=== PATIENT | male | born 2000 | race Caucasian/White ===

== ENCOUNTER 2020-04-10 18:26 | Emergency (ER) | payer MEDICAID, SELFPAY ==
[2020-04-10 18:40] VITALS: BP 158/105; PULSE 96; RESP 16; TEMP 36.9; O2SAT 98; BMI 32.9
== END 2020-04-10 19:30 | disposition left against medical advice (07) ==
LOC: ER 18:46
PROVIDERS: Emergency Provider Emergency Medicine
DX: Z53.21 Procedure and treatment not carried out due to patient leaving prior to being seen by health care provider (principal)
CPT/HCPCS: 99281

== ENCOUNTER 2021-03-13 13:07 | Outpatient (CLI) | payer MEDICAID, SELFPAY | END 2021-03-13 13:08 | disposition home or self-care (01) | LOC: WOUND 13:09 | PROVIDERS: Visit Provider Thoracic Surgery (Cardiothoracic Vascular Surgery) | DX: T81.89XA Other complications of procedures, not elsewhere classified, initial encounter (principal); Y83.8 Other surgical procedures as the cause of abnormal reaction of the patient, or of later complication, without mention of misadventure at the time of the procedure | CPT/HCPCS: 11042; 11045; G0463 ==

== ENCOUNTER 2021-03-16 15:02 | Outpatient (CLI) | payer MEDICAID, SELFPAY | END 2021-03-16 15:03 | disposition home or self-care (01) | LOC: WOUND 15:03 | PROVIDERS: Visit Provider Thoracic Surgery (Cardiothoracic Vascular Surgery) | DX: T81.31XA Disruption of external operation (surgical) wound, not elsewhere classified, initial encounter (principal); Y83.8 Other surgical procedures as the cause of abnormal reaction of the patient, or of later complication, without mention of misadventure at the time of the procedure | CPT/HCPCS: 97605 ==

== ENCOUNTER 2021-03-19 10:57 | Outpatient (CLI) | payer MEDICAID, SELFPAY | END 2021-03-19 10:58 | disposition home or self-care (01) | LOC: WOUND 10:58 | PROVIDERS: Visit Provider Thoracic Surgery (Cardiothoracic Vascular Surgery) | DX: T81.31XA Disruption of external operation (surgical) wound, not elsewhere classified, initial encounter (principal); Y83.8 Other surgical procedures as the cause of abnormal reaction of the patient, or of later complication, without mention of misadventure at the time of the procedure | CPT/HCPCS: 97605 ==

== ENCOUNTER 2021-03-23 14:34 | Outpatient (CLI) | payer MEDICAID, SELFPAY | END 2021-03-23 14:35 | disposition home or self-care (01) | LOC: WOUND 14:34 | PROVIDERS: Visit Provider Surgery | DX: T81.31XA Disruption of external operation (surgical) wound, not elsewhere classified, initial encounter (principal); Y83.8 Other surgical procedures as the cause of abnormal reaction of the patient, or of later complication, without mention of misadventure at the time of the procedure | CPT/HCPCS: 97605 ==

== ENCOUNTER 2021-03-27 14:51 | Outpatient (CLI) | payer MEDICAID, SELFPAY | END 2021-03-27 14:52 | disposition home or self-care (01) | LOC: WOUND 14:51 | PROVIDERS: Visit Provider Thoracic Surgery (Cardiothoracic Vascular Surgery) | DX: T81.89XA Other complications of procedures, not elsewhere classified, initial encounter (principal); Y83.8 Other surgical procedures as the cause of abnormal reaction of the patient, or of later complication, without mention of misadventure at the time of the procedure | CPT/HCPCS: 11042; 11045 ==

== ENCOUNTER 2021-03-30 14:33 | Outpatient (CLI) | payer MEDICAID, SELFPAY | END 2021-03-30 14:34 | disposition home or self-care (01) | LOC: WOUND 14:34 | PROVIDERS: Visit Provider Surgery | DX: T81.31XA Disruption of external operation (surgical) wound, not elsewhere classified, initial encounter (principal); Y83.8 Other surgical procedures as the cause of abnormal reaction of the patient, or of later complication, without mention of misadventure at the time of the procedure | CPT/HCPCS: 97605 ==

== ENCOUNTER 2021-04-03 14:29 | Outpatient (CLI) | payer MEDICAID, SELFPAY | END 2021-04-03 14:30 | disposition home or self-care (01) | LOC: WOUND 14:30 | PROVIDERS: Visit Provider Nurse Practitioner Family | DX: T81.89XA Other complications of procedures, not elsewhere classified, initial encounter (principal); Y83.8 Other surgical procedures as the cause of abnormal reaction of the patient, or of later complication, without mention of misadventure at the time of the procedure | CPT/HCPCS: 11042 ==

== ENCOUNTER 2021-04-16 15:01 | Outpatient (CLI) | payer MEDICAID, SELFPAY | END 2021-04-16 15:02 | disposition home or self-care (01) | LOC: WOUND 15:01 | PROVIDERS: Visit Provider Nurse Practitioner Family | DX: T81.89XA Other complications of procedures, not elsewhere classified, initial encounter (principal); Y83.8 Other surgical procedures as the cause of abnormal reaction of the patient, or of later complication, without mention of misadventure at the time of the procedure; F17.210 Nicotine dependence, cigarettes, uncomplicated | CPT/HCPCS: 11042 ==

== ENCOUNTER → 2023-12-19 11:44 | Outpatient (BNVA) | payer MEDICAID, SELFPAY | PROVIDERS: Visit Provider Emergency Medicine | DX: B34.9 Viral infection, unspecified (principal) | CPT/HCPCS: 87400; 87420; 87426 ==

== ENCOUNTER 2025-01-06 14:07 | Emergency (ER) | payer MEDICAID, SELFPAY ==
[2025-01-06 14:14] VITALS: BP 144/98; PULSE 83; RESP 16; TEMP 36.6; O2SAT 100
[2025-01-06 14:41] LABS: Basophils % 0.3 %; Eosinophils # 0.2 10^3/uL (0.0-0.8); Eosinophils % 1.7 %; Lymphocytes # 2.8 10^3/uL (0.8-4.8); Lymphocytes % 31.7 %; Mean Corpuscular HGB Conc 34.1 g/dL (30-55); Mean Corpuscular Hemoglobin 29.7 pg (27-33); Mean Corpuscular Volume 87.1 fl (82-101); Monocytes # 0.4 10^3/uL (0.2-0.9); Monocytes % 4.6 %; Neutrophils # 5.39 10^3/uL (1.8-7.7); Neutrophils % 61.6 %; Nucleated Red Blood Cells % 0 %; Platelet Count 326 10^3/cmm (157-399); Red Blood Count 5.28 10^6/uL (3.85-5.65); Red Cell Distribution Width 12.2 % (12.1-15.1); White Blood Count 8.75 10^3/uL (3.29-11.43)
[2025-01-06 14:52] LABS: Alanine Aminotransferase 15 U/L (0-41); Albumin Level 3.7 g/dL (3.5-5.2); Alkaline Phosphatase 65 U/L (40-130); Anion Gap 13.8 (5-19); Aspartate Amino Transferase 12 U/L (0-40); Blood Urea Nitrogen 7 mg/dL (6-20); Calcium 9.3 mg/dL (8.5-10.5); Carbon Dioxide 26 mmol/L (22-29); Chloride 104 mmol/L (98-107); Creatinine Clr Calc Pharmacy 175.2425; Globulin 3.2 g/dL (1.3-4.6); Glomerular Filtration Rate 116.9 mL/min (90-130); Glucose 136 mg/dL (65-115); Lipase 18 U/L (13-60); Osmolality Calculated 290 mOsm/kg (285-295); Potassium 3.8 mmol/L (3.5-5.1); Sodium 140 mmol/L (136-145); Total Bilirubin 0.7 mg/dL (0.15-1.2); Total Protein 6.9 g/dL (6.6-8.7)
--- NOTE | 2025-01-06 15:13 | USR_ITS ---
PROCEDURE INFORMATION: Exam: US Abdomen; Limited Exam date and time: 01/06/2025 3:37 PM Age: 24 years old Clinical indication: Abdominal pain; Epigastric; Additional info: Epigastric /ruq abd pain TECHNIQUE: Imaging protocol: Real time ultrasound of the abdomen with image documentation. Limited exam focused on the region of clinical interest. COMPARISON: No relevant prior studies available. FINDINGS: Liver: The liver is unremarkable. Gallbladder: The gallbladder is nondistended. No gallbladder wall thickening or pericholecystic fluid. No gallstones. Biliary ducts: The common bile duct is nondilated measuring 4 mm. Pancreas: The visible portion of the pancreas is unremarkable. Right kidney: The right kidney is unremarkable. Cortical thickness and echotexture is normal. There is no hydronephrosis. No visible stones. The right kidney measures 11.4 cm in length. Aorta: The visible portion of the abdominal aorta is unremarkable. Inferior vena cava: The visible portion of the IVC is unremarkable. Portal venous: The main portal vein demonstrates hepatopetal flow. US/US gall bladder [id number] IMPRESSION: No pathologic findings.
--- NOTE | 2025-01-06 15:36 | W.ED.ABDPA2 ---
HPI - Abdominal Pain General: Chief Complaint: Abdominal Pain Stated Complaint: upper abdominal pain Time Seen by Provider: 01/06/25 14:25 History of Present Illness: 24-year-old male presents emergency room complaining of epigastric right upper quadrant abdominal pain worse after he eats. He said some loose stools associated with it at times no hematochezia melena hematemesis or coffee-ground emesis no dysuria urgency or frequency. No acholic stools. Associated Symptoms: Reports nausea; Denies chills, coffee ground emesis, dysuria, fever(s), hematochezia, hematemesis, melena and vomiting Related Data Home Medications ?Medication ?Instructions ?Recorded ?Confirmed lisinopril 40 mg tablet 40 mg PO DAILY 01/06/25 01/06/25 metformin 1,000 mg tablet 1,000 mg PO BID 01/06/25 01/06/25 semaglutide 0.25 mg or 0.5 mg (2 0.25 mg SUBCUT Q7D 01/06/25 01/06/25 mg/3 mL) subcutaneous pen injector (Ozempic) Previous Rx's ?Medication ?Instructions ?Recorded pantoprazole 40 mg tablet,delayed 40 mg PO DAILY #30 tabs 01/06/25 release Allergies Allergy/AdvReac Type Severity Reaction Status Date / Time No Known Allergies Allergy Verified 12/19/23 11:20 Review of Systems Const: Denies: fever(s) or chills Card: Denies: chest pain Resp: Denies: dyspnea GI: Reports: abdominal pain and nausea; Denies: vomiting, hematemesis, coffee ground emesis, hematochezia or melena : Denies: dysuria, urinary frequency or urinary urgency Musc: Denies: neck pain or back pain Skin/Breast: Denies: rash PFSH ED PFSH: Social History Smoking and tobacco/nicotine status: heavy tobacco/nicotine user Alcohol intake: never Substance/Drug Use: never Physical Exam Const: GENERAL APPEARANCE: cooperative ORIENTATION/CONSCIOUSNESS: Yes awake, Yes oriented to person, Yes oriented to place and Yes oriented to time HENMT: COMMON NORMALS: normocephalic, atraumatic and hearing grossly normal bilaterally HEAD & SCALP: normocephalic and atraumatic Resp: COMMON NORMALS: normal respiratory effort, No retractions, No use of accessory muscles and clear to auscultation bilaterally AUSCULTATION: clear to auscultation bilaterally Cardio: COMMON NORMALS: regular rate, regular rhythm and No murmurs present (Cardio) RATE: regular rate RHYTHM: regular rhythm GI: COMMON NORMALS: Soft to palpation and No hepatosplenomegaly present AUSCULTATION: Yes normoactive bowel sounds PALPATION: Yes Soft to palpation, No Tenderness to palpation present (GI), No Guarding due to palpation present (GI) and Yes No hepatosplenomegaly present Extremity: COMMON NORMALS: normal to inspection, capillary refill normal, no clubbing, cyanosis or edema, no calf tenderness and no pedal edema Neuro: SENSORIUM/ORIENTATION: Yes oriented to person, Yes oriented to place and Yes oriented to time Skin: COMMON NORMALS: no rashes or lesions noted GENERAL SKIN EXAM: no rashes or lesions noted Course Vital Signs: Vital signs: Vital Signs Temperature 97.9 F 01/06/25 14:14 Pulse Rate 87 01/06/25 16:12 Respiratory Rate 16 01/06/25 14:14 Blood Pressure 141/94 01/06/25 16:12 Pulse Oximetry 98 01/06/25 16:12 MDM - Abdominal Pain Medical Decision Making Labs unremarkable see ultrasound gallbladder did not show any stones or signs of acute cholecystitis. Start the patient on pantoprazole and encouraged to reach antireflux diet. Both the metformin and the Ozempic could also contribute to this. Set him up to see general surgery and set up an outpatient HIDA scan. Lab Data 01/06/25 14:29 01/06/25 14:29 Labs/Radiology: Laboratory Results WBC 8.75 10^3/uL (3.29-11.43) 01/06/25 14: RBC 5.28 10^6/uL (3.85-5.65) 01/06/25 14:29 Hgb 15.70 g/dL (11.27-16.99) 01/06/25 14:29 Hct 46.0 % (37-53) 01/06/25 14:29 MCV 87.1 fl (82-101) 01/06/25 14: MCH 29.7 pg (27-33) 01/06/25 14: MCHC 34.1 g/dL (30-55) 01/06/25 14: RDW 12.2 % (12.1-15.1) 01/06/25 14: Plt Count 326 10^3/cmm (157-399) 01/06/25 14: MPV 10.0 fL (7.4-10.4) 01/06/25 14:29 Neut % (Auto) 61.6 % 01/06/25 14:29 Lymph % (Auto) 31.7 % 01/06/25 14:29 [place] % (Auto) 4.6 % 01/06/25 14:29 Eos % (Auto) 1.7 % 01/06/25 14: Baso % (Auto) 0.3 % 01/06/25 14: Neut # (Auto) 5.39 10^3/uL (1.8-7.7) 01/06/25 14: Lymph # (Auto) 2.8 10^3/uL (0.8-4.8) 01/06/25 14: [place] # (Auto) 0.4 10^3/uL (0.2-0.9) 01/06/25 14: Eos # (Auto) 0.2 10^3/uL (0.0-0.8) 01/06/25 14: Baso # (Auto) 0.0 10^3/uL (0.0-0.1) 01/06/25 14: Nucleated RBC % (auto) 0 % 01/06/25 14: Nucleated RBCs # 0.0 /100WBC 01/06/25 14: Sodium 140 mmol/L (136-145) 01/06/25 14: Potassium 3.8 mmol/L (3.5-5.1) 01/06/25 14: Chloride 104 mmol/L (98-107) 01/06/25 14: Carbon Dioxide 26 mmol/L (22-29) 01/06/25 14: Anion Gap 13.8 (5-19) 01/06/25 14:29 BUN 7 mg/dL (6-20) 01/06/25 14: Creatinine 0.8 mg/dL (0.7-1.2) 01/06/25 14: GFR Calculation 116.9 mL/min (90-130) 01/06/25 14:29 Glucose 136 mg/dL (65-115) H 01/06/25 14:29 Calculated Osmolality 290 mOsm/kg (285-295) 01/06/25 14:29 Calcium 9.3 mg/dL (8.5-10.5) 01/06/25 14:29 Total Bilirubin 0.7 mg/dL (0.15-1.2) 01/06/25 14:29 AST 12 U/L (0-40) 01/06/25 14:29 ALT 15 U/L (0-41) 01/06/25 14:29 Alkaline Phosphatase 65 U/L (40-130) 01/06/25 14:29 Total Protein 6.9 g/dL (6.6-8.7) 01/06/25 14:29 Albumin 3.7 g/dL (3.5-5.2) 01/06/25 14:29 Globulin 3.2 g/dL (1.3-4.6) 01/06/25 14:29 Lipase 18 U/L (13-60) 01/06/25 14:29 XR interpretation done by ED provider, pending radiology final review Discharge Plan Discharge Patient Disposition: Home Clinical Impression: Abdominal pain Condition: Stable Prescriptions: New pantoprazole 40 mg tablet,delayed release (DR/EC) 40 mg PO DAILY Qty: 30 0RF No Action metformin 1,000 mg tablet 1,000 mg PO BID lisinopril 40 mg tablet 40 mg PO DAILY Ozempic 0.25 mg or 0.5 mg (2 mg/3 mL) pen injector 0.25 mg SUBCUT Q7D Rx Instructions: Tuesdays Discharge Orders: Discharge ED (Routine); Ordered 01/06/25 Ordered By: Geraldo Baker Referrals: Sammi Heath MD [Primary Care Provider, Family Practice] Discharge Diet: As Directed Discharge Activity: Increase activity as tolerated Patient Instructions: Diet for Stomach Ulcers and Gastritis (ED), Abdominal Pain (ED), Opioid Safety, Pain Management Activity Restrictions/Additional Instructions: Thank you for choosing [facility] for your healthcare needs today. It is very important that you follow up as instructed or that you return to the Emergency Department should you have concerns or if your condition changes or worsens in any way. You were seen in the emergency room abdominal pain. Laboratory tests did not show significant maladies. Urine was normal and gallbladder ultrasound did not show any acute pathology. Suspect reflux possibly biliary dyskinesia will set you up to see general surgery for an EGD as well as an outpatient HIDA scan. Additionally recommend that you start on pantoprazole 40 mg once daily Print Language: Comoran Coding Level of Care Code ED Distance Education Teacher for Carolyn Rees
[2025-01-06 16:12] VITALS: BP 141/94; PULSE 87; O2SAT 98
--- NOTE | 2025-01-07 08:09 | DCPLANNER ---
messaged general surgery and faxed outpatient hida to scheduling
== END 2025-01-06 16:12 | disposition home or self-care (01) ==
PROVIDERS: Emergency Provider Family Medicine; PCP Family Medicine
DX: R10.9 Unspecified abdominal pain (principal); Z79.84 Long term (current) use of oral hypoglycemic drugs
CPT/HCPCS: 36415; 76705; 80053; 83690; 85025; 99284

== ENCOUNTER 2025-01-16 19:14 | Emergency (ER) | payer MEDICAID, SELFPAY ==
[2025-01-16 19:34] VITALS: BP 143/99; PULSE 83; TEMP 36.7; O2SAT 100; BMI 32.6
[2025-01-16 19:59] LABS: Basophils # 0.1 10^3/uL (0.0-0.1); Basophils % 0.6 %; Eosinophils # 0.2 10^3/uL (0.0-0.8); Hematocrit 46.4 % (37-53); Lymphocytes # 3.4 10^3/uL (0.8-4.8); Mean Corpuscular HGB Conc 33.2 g/dL (30-55); Mean Corpuscular Hemoglobin 29.2 pg (27-33); Mean Platelet Volume 10.2 fL (7.4-10.4); Monocytes # 0.5 10^3/uL (0.2-0.9); Monocytes % 6.5 %; Neutrophils # 3.88 10^3/uL (1.8-7.7); Neutrophils % 48.6 %; Nucleated Red Blood Cells % 0 %; Platelet Count 367 10^3/cmm (157-399); Red Blood Count 5.27 10^6/uL (3.85-5.65); Red Cell Distribution Width 12.4 % (12.1-15.1); White Blood Count 7.98 10^3/uL (3.29-11.43)
[2025-01-16 20:17] LABS: Alanine Aminotransferase 13 U/L (0-41); Albumin Level 3.9 g/dL (3.5-5.2); Alkaline Phosphatase 59 U/L (40-130); Anion Gap 15.1 (5-19); Aspartate Amino Transferase 12 U/L (0-40); Blood Urea Nitrogen 7 mg/dL (6-20); Calcium 9.5 mg/dL (8.5-10.5); Carbon Dioxide 26 mmol/L (22-29); Chloride 102 mmol/L (98-107); Creatinine Clr Calc Pharmacy 138.7576; Globulin 3.4 g/dL (1.3-4.6); Glomerular Filtration Rate 90.3 mL/min (90-130); Glucose 134 mg/dL (65-115); Lipase 18 U/L (13-60); Osmolality Calculated 288 mOsm/kg (285-295); Potassium 4.1 mmol/L (3.5-5.1); Sodium 139 mmol/L (136-145); Total Bilirubin 0.8 mg/dL (0.15-1.2); Total Protein 7.3 g/dL (6.6-8.7)
--- NOTE | 2025-01-16 21:07 | XRR_ITS ---
PROCEDURE INFORMATION: Exam: XR Abdomen Exam date and time: 01/16/2025 9:27 PM Age: 24 years old Clinical indication: Abdominal pain; Epigastric/rlq pain; N/v; Gb attack TECHNIQUE: Imaging protocol: Radiologic exam of the abdomen. Views: Frontal supine view of the abdomen. 1 View. COMPARISON: US gall bladder [id number] 01/06/2025 3:37 PM FINDINGS: Gastrointestinal tract: Moderate constipation without bowel dilation to indicate obstruction. Bones/joints: Unremarkable. XR/XR KUB portable [id number] IMPRESSION: Moderate constipation without bowel dilation to indicate obstruction.
--- NOTE | 2025-01-16 21:07 | USR_ITS ---
PROCEDURE INFORMATION: Exam: US Abdomen, Limited; Right Upper Quadrant Exam date and time: 01/16/2025 10:02 PM Age: 24 years old Clinical indication: Abdominal pain; Additional info: Ruq pain TECHNIQUE: Imaging protocol: Real time ultrasound of the abdomen with image documentation. Limited exam focused on the right upper quadrant. COMPARISON: US gall bladder [id number] 01/06/2025 3:37 PM FINDINGS: Liver: Normal. No masses. Gallbladder: Normal. No gallstones. There is no gallbladder wall thickening. Biliary ducts: Normal. No stones. No dilation. Pancreas: Visualized pancreas is unremarkable. Right kidney: Normal. No mass. No hydronephrosis. US/US gall bladder [id number] IMPRESSION: No acute findings.
[2025-01-16 21:08] VITALS: BP 138/91; PULSE 78; O2SAT 100
[2025-01-16] MEDS: ondansetron 2 mg/ML SDV 2 mL 4 MG IVP (21:18)
[2025-01-16] MEDS: ketorolac 30 mg/mL INJ IVP (21:19)
[2025-01-16] MEDS: morphine 4 mg/mL SDV 1 mL IVP (21:21)
[2025-01-16 21:30] VITALS: PULSE 70; O2SAT 100
[2025-01-16 22:00] VITALS: BP 115/84; PULSE 72; O2SAT 100
--- NOTE | 2025-01-16 22:05 | ED_ITS ---
HPI - Abdominal Pain 2 General: Chief Complaint: Abdominal Pain Stated Complaint: upper abd pain, n/v/f Time Seen by Provider: 01/16/25 20:50 History of Present Illness: 24-year-old male with ongoing epigastric and right upper quadrant pain for the past 2 weeks. He has been seen at an outside facility. He has been told he had cholecystitis, and that he was constipated. He had 2 bottles of magnesium citrate without relief of his constipation. He states that pain increases after eating. He has vomited bilious material. He has increased pain even with drinking liquids. Related Data Home Medications ?Medication ?Instructions ?Recorded ?Confirmed lisinopril 40 mg tablet 40 mg PO DAILY 01/06/25 0511/02 metformin 1,000 mg tablet 1,000 mg PO BID 01/06/2511/02 semaglutide 0.25 mg or 0.5 mg (2 0.25 mg SUBCUT Q7D 01/07/25 mg/3 mL) subcutaneous pen injector (Ozempic) Previous Rx's ?Medication ?Instructions ?Recorded pantoprazole 40 mg tablet,delayed 40 mg PO DAILY #30 t abs 01/06/25 release ketorolac 10 mg tablet 10 mg PO TID PRN pain #10 ta bs 01/16/25 lactulose 10 gram/15 mL oral 20 g (30 mL) PO TID #1,50 0 mL 01/16/25 solution (Constulose) Allergies Allergy/AdvReac Type Severity Reaction Status Date / Time No Known Allergies Allergy Verified 01/16/25 19:38 [facility] ED 2 PFSH: Social History Smoking and tobacco/nicotine status: heavy tobacco/nicotine user Alcohol intake: never Substance/Drug Use: never Physical Exam 2 Const: COMMON NORMALS: no acute distress GENERAL APPEARANCE: cooperative; not ill appearing and not frail appearing HENMT: COMMON NORMALS: normocephalic, atraumatic and Normal external nose present HEAD & SCALP: normocephalic and atraumatic FACE & SINUS: normal facial exam and face symmetric NOSE: Normal external nose present Eye: COMMON NORMALS: Equal, round and reactive pupils present and EOMs intact bilaterally PUPIL: Yes Equal, round and reactive pupils present Neck/C-Spine: GENERAL: Yes trachea midline Chest: CHEST: Yes Symmetrical chest wall rise Resp: COMMON NORMALS: normal respiratory effort, No retractions, No use of accessory muscles and clear to auscultation bilaterally AUSCULTATION: clear to auscultation bilaterally Cardio: COMMON NORMALS: regular rate and regular rhythm RATE: regular rate RHYTHM: regular rhythm GI: COMMON NORMALS: Soft to palpation INSPECTION: Yes normal to inspection PALPATION: Yes Soft to palpation, Yes Tenderness to palpation present (GI) Details: RUQ and Yes Guarding due to palpation present (GI) Extremity: COMMON NORMALS: no pedal edema Neuro: [place] COMA SCALE: document GCS findings [place] coma scale eye opening: Spontaneous [place] coma scale verbal response: Orientated [place] coma scale motor response: Obey commands [place] coma scale total score: 15 S ENSORY EXAM: Yes extremities (intact) Psych: COMMON NORMALS: speech normal SPEECH: Yes normal speech Skin: COMMON NORMALS: no rashes or lesions noted GENERAL SKIN EXAM: no rashes or lesions noted Course 2 Vital Signs: Vital signs: Vital Signs Temperature 98.0 F 01/16/25 19:34 Pulse Rate 68 01/17/25 00:40 Blood Pressure 120/71 01/17/25 00:40 Pulse Oximetry 94 01/17/25 00:40 Oxygen Delivery Me thod Room Air 01/16/25 19:34 MDM - Abdominal Pain Medical Decision Making Vitals are normal. CBC is normal. BMP is not remarkable. Liver enzymes are normal. Lipase is 18. Ultrasound of the gallbladder is pending. KUB shows increased stool burden without obstruction. Gallbladder ultrasound is negative. No acute findings. Symptoms are controlled currently. Will go home with medication for symptomatic biliary colic versus abdominal pain. Case management will set up appointment with surgery for the patient. Lab Data 01/16/25 19:30 01/16/25 19:30 Labs/Radiology: Radiology Impressions Gallbladder Ultrasound 01/16/25 21:07 IMPRESSION: No acute findings. KUB X-Ray 01/16/25 21:07 IMPRESSION: Moderate constipation without bowel dilation to indicate obstruction. Laboratory Results WBC 7.98 10^3/uL (3.29-11.43) 01/16/25 19:30 RBC 5.27 10^6/uL (3.85-5.65) 01/16/25 19:30 Hgb 15.40 g/dL (11.27-16.99) 01/16/25 19: Hct 46.4 % (37-53) 01/16/25: MCV 88.0 fl (82-101) 01/16/25 19: MCH 29.2 pg (27-33) 01/16/25: MCHC 33.2 g/dL (30-55) 01/16/25: RDW 12.4 % (12.1-15.1) 01/16/25 Plt Count 367 10^3/cmm (157-399) 01/16/25 MPV 10.2 fL (7.4-10.4) 01/16/25: Neut % (Auto) 48.6 % 01/16/25: Lymph % (Auto) 42.0 % 01/16/25: [place] % (Auto) 6.5 % 01/16/25: Eos % (Auto) 2.0 % 01/16/25 Baso % (Auto) 0.6 % 01/16/25: Neut # (Auto) 3.88 10^3/uL (1.8-7.7) 01/16/25: Lymph # (Auto) 3.4 10^3/uL (0.8-4.8) 01/16/25: [place] # (Auto) 0.5 10^3/uL (0.2-0.9) 01/16/25 Eos # (Auto) 0.2 10^3/uL (0.0-0.8) 01/16/25: Baso # (Auto) 0.1 10^3/uL (0.0-0.1) 01/16/25 Nucleated RBC % (auto) 0 % 01/16/25 Nucleated RBCs # 0.0 /100WBC 01/16/25: Sodium 139 mmol/L (136-145) 01/16/25: Potassium 4.1 mmol/L (3.5-5.1) 01/16/25 Chloride 102 mmol/L (98-107) 01/16/25: Carbon Dioxide 26 mmol/L (22-29) 01/16/25 19:30 Anion Gap 15.1 (5-19) 01/16/25 19:30 BUN 7 mg/dL (6-20) 01/16/25 19:30 Creatinine 1.0 mg/dL (0.7-1.2) 01/16/25 19:30 GFR Calculation 90.3 mL/min (90-130) 01/16/25 19:30 Glucose 134 mg/dL (65-115) H 01/16/25 19:30 Calculated Osmolality 288 mOsm/kg (285-295) 01/16/25 19:30 Calcium 9.5 mg/dL (8.5-10.5) 01/16/25 19:30 Total Bilirubin 0.8 mg/dL (0.15-1.2) 01/16/25 19:30 AST 12 U/L (0-40) 01/16/25 19:30 ALT 13 U/L (0-41) 01/16/25 19:30 Alkaline Phosphatase 59 U/L (40-130) 01/16/25 19:30 Total Protein 7.3 g/dL (6.6-8.7) 01/16/25 19:30 Albumin 3.9 g/dL (3.5-5.2) 01/16/25 19:30 Globulin 3.4 g/dL (1.3-4.6) 01/16/25 19:30 Lipase 18 U/L (13-60) 01/16/25 19:30 All radiology interpretation(s) finalized by discharge Discharge Plan Discharge Patient Disposition: Home Clinical Impression: Constipation, Biliary colic Condition: Stable Prescriptions: New lactulose [Constulose] 10 gram/15 mL solution 20 g PO TID Qty: 1500 0RF ketorolac 10 mg tablet 10 mg PO TID PRN (Reason: pain) Qty: 10 0RF No Action metformin 1,000 mg tablet 1,000 mg PO BID lisinopril 40 mg tablet 40 mg PO DAILY Ozempic 0.25 mg or 0.5 mg (2 mg/3 mL) pen injector 0.25 mg SUBCUT Q7D Rx Instructions: Tuesdays pantoprazole 40 mg tablet,delayed release (DR/EC) 40 mg PO DAILY Qty: 30 0RF Discharge Orders: Discharge ED (Routine); Ordered 01/16/25 Ordered By: Vj Green Referrals: Sammi Heath MD [Primary Care Provider, [facility]] - 1-3 days Patient Instructions: Abdominal Pain (ED), Opioid Safety, Pain Management Activity Restrictions/Additional Instructions: Your gallbladder did not show signs of obstruction or infection this evening on ultrasound. In these cases, although the gallbladder does not need to come out emergently, it still may require further investigation, and evaluation by a surgeon as an outpatient. Measure temperature 3 times daily. Return for fever greater than 100, worsening pain despite treatment, vomiting liquids or medications, other concerning symptoms. Case management has been asked to make you a follow-up appointment with general surgery clinic this week. You should get a call from them by Friday. Follow a liquid diet. Use lactulose 3 times daily, and until bowel movements become regular and soft, then you may decrease to twice daily and once daily etc. Print Language: Prydeinig Coding Level of Care Code ED [employer] for Carolyn Rees
[2025-01-16 22:30] VITALS: PULSE 67; O2SAT 95
[2025-01-16 23:00] VITALS: BP 120/71; PULSE 68; O2SAT 94
[2025-01-17 00:40] VITALS: BP 120/71; PULSE 68; O2SAT 94
== END 2025-01-16 23:00 | disposition home or self-care (01) ==
PROVIDERS: Emergency Medicine; Emergency Provider Emergency Medicine; PCP Family Medicine
DX: K59.00 Constipation, unspecified (principal); K80.50 Calculus of bile duct without cholangitis or cholecystitis without obstruction; Z79.84 Long term (current) use of oral hypoglycemic drugs; Z72.0 Tobacco use
CPT/HCPCS: 36415; 74018; 76705; 80053; 83690; 85025; 96374; 96375; 99284; J1885; J2270; J2405

== ENCOUNTER 2025-01-30 08:04 | Emergency (ER) | payer MEDICAID, SELFPAY ==
[2025-01-30 08:17] VITALS: BP 169/115; PULSE 88; RESP 18; TEMP 36.9; O2SAT 100; BMI 31.9
--- NOTE | 2025-01-30 08:30 | W.ED.BACK ---
HPI - Back Pain/Injury General: Chief Complaint: Back Pain/Injury Stated Complaint: back pain, numbness in rt leg Time Seen by Provider: 01/30/25 08:07 Source: patient Mode of arrival: ambulatory Limitations: no limitations History of Present Illness: 24-year-old male he states that he had a fall roughly 3 weeks ago he has been diagnosed on Friday with CT scan of compression fractures of T9-T10-T11 he is in a TLSO brace. He states he is continue to have back pain states his pain is currently an 8 out of 10 has been taking hydrocodone states had some numbness down his leg denies any difficulty walking denies any bowel or bladder incontinence. Associated symptoms: Deny abdominal pain, chills, fever(s), nausea or vomiting Related Data Home Medications ?Medication ?Instructions ?Recorded ?Confirmed lisinopril 40 mg tablet 40 mg PO DAILY 01/06/25 01/07/25 metformin 1,000 mg tablet 1,000 mg PO BID 01/06/25 01/07/25 semaglutide 0.25 mg or 0.5 mg (2 0.25 mg SUBCUT Q7D 01/06/25 01/07/25 mg/3 mL) subcutaneous pen injector (Ozempic) Previous Rx's ?Medication ?Instructions ?Recorded pantoprazole 40 mg tablet,delayed 40 mg PO DAILY #30 tabs 01/06/25 release ketorolac 10 mg tablet 10 mg PO TID PRN pain #10 tabs 01/16/25 lactulose 10 gram/15 mL oral 20 g (30 mL) PO TID #1,500 mL 01/16/25 solution (Constulose) Allergies Allergy/AdvReac Type Severity Reaction Status Date / Time No Known Allergies Allergy Verified 01/16/25 19:38 Review of Systems Const: Denies: fever(s), chills, body aches or change in appetite ENMT: Denies: throat pain or dental pain Card: Denies: chest pain Resp: Denies: dyspnea GI: Denies: abdominal pain, nausea, vomiting or diarrhea Musc: Reports: back pain; Denies: neck pain Skin/Breast: Denies: rash Neuro: Denies: headache(s) PFSH ED PFSH: Social History Smoking and tobacco/nicotine status: heavy tobacco/nicotine user Alcohol intake: never Substance/Drug Use: never Physical Exam Const: COMMON NORMALS: no acute distress, patient oriented x3 and healthy appearing HENMT: COMMON NORMALS: normocephalic and atraumatic HEAD & SCALP: normocephalic and atraumatic Eye: COMMON NORMALS: conjunctivae normal CONJUNCTIVA: Yes conjunctivae normal Neck/C-Spine: COMMON NORMALS: full ROM and supple Chest: COMMONS NORMALS: normal inspection of the chest Resp: COMMON NORMALS: normal respiratory effort Cardio: COMMON NORMALS: regular rate, regular rhythm and No murmurs present (Cardio) RATE: regular rate RHYTHM: regular rhythm Back/Pelvis: OTHER: Tenderness along T-spine no saddle anesthesia Extremity: COMMON NORMALS: normal to inspection and full ROM Neuro: COMMON NORMALS: patient oriented x3, moves all extremities and no focal motor deficits Psych: COMMON NORMALS: mental status grossly normal, Normal thought process present and cooperative THOUGHT PROCESS: Normal thought process present Skin: COMMON NORMALS: no rashes or lesions noted and no wounds GENERAL SKIN EXAM: no rashes or lesions noted Course Vital Signs: Vital signs: Vital Signs Temperature 98.4 F 01/30/25 08:17 Pulse Rate 88 01/30/25 08:17 Respiratory Rate 18 01/30/25 08:17 Blood Pressure 169/115 01/30/25 08:17 Pulse Oximetry 100 01/30/25 08:17 Oxygen Delivery Me thod Room Air 01/30/25 08:17 MDM - Back Pain/Injury Medical Decision Making Patient presents with back pain I did get his images from [facility] he had a CT abdomen that was negative x-ray of the T-spine that showed mild compression deformities to T9-T10 1011. He has no signs of cord compression here his pain is improved we will get him follow-up with spine surgeon Medical Records I reviewed the patient's medical records. No radiology studies performed this visit Discharge Plan Discharge Patient Disposition: Home Clinical Impression: Thoracic back pain Condition: Stable Prescriptions: No Action metformin 1,000 mg tablet 1,000 mg PO BID lisinopril 40 mg tablet 40 mg PO DAILY Ozempic 0.25 mg or 0.5 mg (2 mg/3 mL) pen injector 0.25 mg SUBCUT Q7D Rx Instructions: Tuesdays pantoprazole 40 mg tablet,delayed release (DR/EC) 40 mg PO DAILY Qty: 30 0RF lactulose [Constulose] 10 gram/15 mL solution 20 g PO TID Qty: 1500 0RF ketorolac 10 mg tablet 10 mg PO TID PRN (Reason: pain) Qty: 10 0RF Discharge Orders: Discharge ED (Routine); Ordered 01/30/25 Ordered By: Carlos Cortez Referrals: Trace Zavala DO [Physician, Orthopedics] - 4-7 days Sammi Heath MD [Primary Care Provider, Family Practice] Discharge Diet: Advance as tolerated Discharge Activity: Resume usual activity Patient Instructions: Thoracolumbar Fracture (ED) Print Language: Spanish Coding Level of Care Code ED Tapping Machine Operator for Carolyn Rees
[2025-01-30] MEDS: methocarbamol 750 mg Tablet 1500 MG PO (08:42)
[2025-01-30] MEDS: ondansetron 2 mg/ML SDV 2 mL 4 MG IM (08:46)
[2025-01-30] MEDS: dexamethasone 10 mg/mL INJ IM (08:47)
[2025-01-30] MEDS: HYDROmorphone 0.5 MG/0.5 ML INJ 1 MG IM (08:47)
[2025-01-30 09:14] VITALS: BP 158/109; PULSE 69; O2SAT 100
--- NOTE | 2025-01-31 12:25 | PC.NURSE ---
referral sent to ortho.
== END 2025-01-30 09:15 | disposition home or self-care (01) ==
PROVIDERS: Emergency Provider Emergency Medicine; PCP Family Medicine
DX: M54.6 Pain in thoracic spine (principal)
CPT/HCPCS: 96372; 99284; J1100; J1171; J2405; J9999

== ENCOUNTER → 2025-02-03 07:55 | Outpatient (BNVA) | payer MEDICAID, SELFPAY | PROVIDERS: PCP Family Medicine; Visit Provider Orthopaedic Surgery | DX: M54.6 Pain in thoracic spine (principal) | CPT/HCPCS: 72072; 72110 ==

== ENCOUNTER 2025-02-19 10:03 | Emergency (ER) | payer MEDICAID, SELFPAY ==
[2025-02-19 10:09] VITALS: BP 119/87; PULSE 101; RESP 18; TEMP 36.7; O2SAT 100; BMI 30.7
--- NOTE | 2025-02-19 10:40 | W.ED.ABDPA2 ---
HPI - Abdominal Pain General: Chief Complaint: Abdominal Pain Stated Complaint: abd pain Time Seen by Provider: 02/19/25 10:13 History of Present Illness: 24-year-old male presents emergency room complaining of abdominal discomfort. He had an incidental finding of left nephrolithiasis however it has not been tracking to the ureter. He feels like he may have him difficulty urinating. He is not having vomiting diarrhea no fevers or chills no flank pain Associated Symptoms: Denies chills, dysuria and fever(s) Related Data Home Medications ?Medication ?Instructions ?Recorded ?Confirmed lisinopril 40 mg tablet 40 mg PO DAILY 01/06/25 02/19/25 metformin 1,000 mg tablet 1,000 mg PO BID 01/06/25 02/19/25 naloxone 4 mg/actuation nasal See Rx Instructions .Route .COMPLEX 01/30/25 02/19/25 spray (Narcan) ibuprofen 800 mg tablet 800 mg PO Q8H PRN Pain 02/19/25 02/19/25 ondansetron 4 mg disintegrating 4 mg PO Q6H PRN Nausea And Vomiting 02/19/25 02/19/25 tablet oxycodone 10 mg tablet 10 mg PO Q4H PRN Pain 02/19/25 02/19/25 Allergies Allergy/AdvReac Type Severity Reaction Status Date / Time No Known Allergies Allergy Verified 01/16/25 19:38 Review of Systems Const: Denies: fever(s) or chills Card: Denies: chest pain Resp: Denies: dyspnea GI: Denies: abdominal pain : Denies: dysuria, urinary frequency or urinary urgency Musc: Denies: neck pain or back pain Skin/Breast: Denies: rash PFSH ED PFSH: Social History Smoking and tobacco/nicotine status: never used tobacco/nicotine Alcohol intake: never Substance/Drug Use: never Physical Exam Const: COMMON NORMALS: no acute distress GENERAL APPEARANCE: cooperative and comfortable ORIENTATION/CONSCIOUSNESS: Yes awake, Yes oriented to person, Yes oriented to place and Yes oriented to time HENMT: COMMON NORMALS: normocephalic, atraumatic and hearing grossly normal bilaterally HEAD & SCALP: normocephalic and atraumatic Resp: COMMON NORMALS: normal respiratory effort, No retractions, No use of accessory muscles and clear to auscultation bilaterally AUSCULTATION: clear to auscultation bilaterally Cardio: COMMON NORMALS: regular rate, regular rhythm and No murmurs present (Cardio) RATE: regular rate RHYTHM: regular rhythm GI: COMMON NORMALS: Soft to palpation and No hepatosplenomegaly present AUSCULTATION: Yes normoactive bowel sounds PALPATION: Yes Soft to palpation, No Tenderness to palpation present (GI), No Guarding due to palpation present (GI) and Yes No hepatosplenomegaly present Extremity: COMMON NORMALS: normal to inspection, capillary refill normal, no clubbing, cyanosis or edema, no calf tenderness and no pedal edema Neuro: SENSORIUM/ORIENTATION: Yes oriented to person, Yes oriented to place and Yes oriented to time Skin: COMMON NORMALS: no rashes or lesions noted GENERAL SKIN EXAM: no rashes or lesions noted Course Vital Signs: Vital signs: Vital Signs Temperature 98.1 F 02/19/25 10:09 Pulse Rate 84 02/19/25 12:40 Respiratory Rate 18 02/19/25 10:09 Blood Pressure 118/89 02/19/25 12:40 Pulse Oximetry 97 02/19/25 12:40 Oxygen Delivery Me thod Room Air 02/19/25 10:09 MDM - Abdominal Pain Medical Decision Making No leukocytosis no hematuria. White count normal he does not have pain consistent with renal colic within advancing Nephril lithiasis. Reassurance given follow-up with primary care. Lab Data 02/19/25 10:53 02/19/25 10:53 Labs/Radiology: Laboratory Results WBC 8.85 10^3/uL (3.29-11.43) 02/19/25 10:53 RBC 4.99 10^6/uL (3.85-5.65) 02/19/25 10:53 Hgb 15.10 g/dL (11.27-16.99) 02/19/25 10:53 Hct 45.4 % (37-53) 02/19/25 10:53 MCV 91.0 fl (82-101) 02/19/25 10:53 MCH 30.3 pg (27-33) 02/19/25 10:53 MCHC 33.3 g/dL (30-55) 02/19/25 10:53 RDW 12.8 % (12.1-15.1) 02/19/25 10:53 Plt Count 280 10^3/cmm (157-399) 02/19/25 10:53 MPV 10.5 fL (7.4-10.4) H 02/19/25 10:53 Neut % (Auto) 70.1 % 02/19/25 10:53 Lymph % (Auto) 21.5 % 02/19/25 10:53 [place] % (Auto) 6.3 % 02/19/25 10:53 Eos % (Auto) 1.6 % 02/19/25 10:53 Baso % (Auto) 0.3 % 02/19/25 10:53 Neut # (Auto) 6.20 10^3/uL (1.8-7.7) 02/19/25 10:53 Lymph # (Auto) 1.9 10^3/uL (0.8-4.8) 02/19/25 10:53 [place] # (Auto) 0.6 10^3/uL (0.2-0.9) 02/19/25 10:53 Eos # (Auto) 0.1 10^3/uL (0.0-0.8) 02/19/25 10:53 Baso # (Auto) 0.0 10^3/uL (0.0-0.1) 02/19/25 10:53 Nucleated RBC % (auto) 0 % 02/19/25 10:53 Nucleated RBCs # 0.0 /100WBC 02/19/25 10:53 Sodium 138 mmol/L (136-145) 02/19/25 10:53 Potassium 4.1 mmol/L (3.5-5.1) 02/19/25 10:53 Chloride 101 mmol/L (98-107) 02/19/25 10:53 Carbon Dioxide 25 mmol/L (22-29) 02/19/25 10:53 Anion Gap 16.1 (5-19) 02/19/25 10:53 BUN 6 mg/dL (6-20) 02/19/25 10:53 Creatinine 0.9 mg/dL (0.7-1.2) 02/19/25 10:53 GFR Calculation 102.0 mL/min (90-130) 02/19/25 10:53 Glucose 207 mg/dL (65-115) H 02/19/25 10:53 Calculated Osmolality 290 mOsm/kg (285-295) 02/19/25 10:53 Calcium 9.4 mg/dL (8.5-10.5) 02/19/25 10:53 Total Bilirubin 0.6 mg/dL (0.15-1.2) 02/19/25 10:53 AST 22 U/L (0-40) 02/19/25 10:53 ALT 43 U/L (0-41) H 02/19/25 10:53 Alkaline Phosphatase 107 U/L (40-130) 02/19/25 10:53 Total Protein 6.9 g/dL (6.6-8.7) 02/19/25 10:53 Albumin 3.7 g/dL (3.5-5.2) 02/19/25 10:53 Globulin 3.2 g/dL (1.3-4.6) 02/19/25 10:53 Urine Color Yellow (Yellow) 02/19/25 11:00 Urine Appearance Clear (CLEAR) 02/19/25 11:00 Urine pH 5.0 (5-7) 02/19/25 11:00 Ur Specific [place] 1.015 (1.005-1.030) 02/19/25 11:00 Urine Protein 3+ (Negative) A 02/19/25 11:00 Urine Glucose (UA) Negative (Normal) 02/19/25 11:00 Urine Ketones Trace (Negative) 02/19/25 11:00 Urine Blood Negative (Negative) 02/19/25 11:00 Urine Nitrate Negative (Negative) 02/19/25 11:00 Urine Bilirubin Negative (Negative) 02/19/25 11:00 Urine Urobilinogen 1.0 mg/dL (Negative) 02/19/25 11:00 Ur Leukocyte Esterase Negative (Negative) 02/19/25 11:00 Urine RBC 0-2 /hpf (0-2) 02/19/25 11:00 Urine WBC 0-5 /hpf (0-5) 02/19/25 11:00 Ur Squamous Epith Cells 0-5 /hpf (0-5) 02/19/25 11:00 Amorphous Sediment Not Reportable 02/19/25 11:00 Urine Bacteria None seen /hpf (NONE) 02/19/25 11:00 Hyaline Casts 5.36 /lpf 02/19/25 11:00 No radiology studies performed this visit Discharge Plan Discharge Patient Disposition: Home Clinical Impression: Abdominal pain Condition: Stable Prescriptions: No Action naloxone [Narcan] 4 mg/actuation spray,non-aerosol See Rx Instructions .ROUTE .COMPLEX Rx Instructions: CALL 911. USE ONE FULL SPRAY IN ONE NOSTRIL ONE TIME. REPEAT EVERY 2-3 MINUTES NEEDED IF NO OR MINIMAL RESPONSE. metformin 1,000 mg tablet 1,000 mg PO BID lisinopril 40 mg tablet 40 mg PO DAILY ibuprofen 800 mg tablet 800 mg PO Q8H PRN (Reason: Pain) ondansetron 4 mg tablet,disintegrating 4 mg PO Q6H PRN (Reason: Nausea And Vomiting) oxycodone 10 mg tablet 10 mg PO Q4H PRN (Reason: Pain) Discharge Orders: Discharge ED (Routine); Ordered 02/19/25 Ordered By: Geraldo Baker Referrals: Sammi Heath MD [Primary Care Provider, Family Practice] Discharge Diet: As Directed Discharge Activity: Increase activity as tolerated Patient Instructions: Abdominal Pain (ED), Opioid Safety, Pain Management Activity Restrictions/Additional Instructions: Thank you for choosing [facility] for your healthcare needs today. It is very important that you follow up as instructed or that you return to the Emergency Department should you have concerns or if your condition changes or worsens in any way. Follow-up with the surgical team you are seeing in [place] as scheduled Print Language: Mongolian Coding Level of Care Code ED Saturator Operator for Carolyn Rees
[2025-02-19 11:15] LABS: Bilirubin Urine Negative (Negative); Blood Urine Negative (Negative); Glucose Urine UA Negative (Normal); Ketones Urine Trace (Negative); Leukocyte Esterase Urine Negative (Negative); Nitrate Urine Negative (Negative); Protein Urine 3+ (Negative); Specific Gravity, Urine 1.015 (1.005-1.030); Urine Appearance Clear (CLEAR); Urine Color Yellow (Yellow)
[2025-02-19 11:18] LABS: Add Urine Microscopic? YES; Bacteria Urine None Seen /hpf; Hyaline Casts Urine 5.36 /lpf; RBC Urine 0-2 /hpf (0-2); Squamous Epithelial Cell Urine 0-5 /hpf (0-5); WBC Urine 0-5 /hpf (0-5)
[2025-02-19 11:25] LABS: Basophils % 0.3 %; Eosinophils # 0.1 10^3/uL (0.0-0.8); Eosinophils % 1.6 %; Hematocrit 45.4 % (37-53); Lymphocytes # 1.9 10^3/uL (0.8-4.8); Lymphocytes % 21.5 %; Mean Corpuscular HGB Conc 33.3 g/dL (30-55); Mean Corpuscular Hemoglobin 30.3 pg (27-33); Mean Platelet Volume 10.5 fL (7.4-10.4); Monocytes # 0.6 10^3/uL (0.2-0.9); Monocytes % 6.3 %; Neutrophils % 70.1 %; Nucleated Red Blood Cells % 0 %; Platelet Count 280 10^3/cmm (157-399); Red Blood Count 4.99 10^6/uL (3.85-5.65); Red Cell Distribution Width 12.8 % (12.1-15.1); White Blood Count 8.85 10^3/uL (3.29-11.43)
[2025-02-19 11:30] VITALS: BP 131/81; PULSE 87; O2SAT 100
[2025-02-19 11:43] LABS: Alanine Aminotransferase 43 U/L (0-41); Albumin Level 3.7 g/dL (3.5-5.2); Alkaline Phosphatase 107 U/L (40-130); Anion Gap 16.1 (5-19); Aspartate Amino Transferase 22 U/L (0-40); Blood Urea Nitrogen 6 mg/dL (6-20); Calcium 9.4 mg/dL (8.5-10.5); Carbon Dioxide 25 mmol/L (22-29); Chloride 101 mmol/L (98-107); Creatinine Clr Calc Pharmacy 149.7059; Globulin 3.2 g/dL (1.3-4.6); Glucose 207 mg/dL (65-115); Osmolality Calculated 290 mOsm/kg (285-295); Potassium 4.1 mmol/L (3.5-5.1); Sodium 138 mmol/L (136-145); Total Bilirubin 0.6 mg/dL (0.15-1.2); Total Protein 6.9 g/dL (6.6-8.7)
[2025-02-19 12:00] VITALS: BP 118/89; PULSE 84; O2SAT 100
[2025-02-19 12:40] VITALS: BP 118/89; PULSE 84; O2SAT 97
== END 2025-02-19 12:41 | disposition home or self-care (01) ==
PROVIDERS: Emergency Provider Family Medicine; PCP Family Medicine
DX: R10.9 Unspecified abdominal pain (principal); Z79.84 Long term (current) use of oral hypoglycemic drugs
CPT/HCPCS: 51798; 80053; 81001; 85025; 99283